=== PATIENT | female | born 2000 | race African-American/Black ===

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

== ENCOUNTER 2019-02-22 16:05 | Emergency (ER) | payer SELFPAY ==
[~2019-02-22] VITALS: Ht 160 cm; Wt 95.3 kg
[~2019-02-22 16:05] MED LIST: METR500T PO; SULF1TAB24 PO
[2019-02-22 16:18] VITALS: BP 143/67
--- NOTE | 2019-02-22 16:45 | PHYS DOC ---
Past Medical History Past Medical History: Asthma, Depression, Other Additional Past Medical Histor: ACNE DISORDER Past Surgical History: No Surgical History Alcohol Use: None Drug Use: None Adult General Chief Complaint Chief Complaint: SORE THROAT HPI HPI Patient is a 18 year old Female who presents with cough, stuffy nose and throat pain that started yesterday. Patient rates her pain at 6/10. Review of Systems Review of Systems HENT: nasal congestion or sore throat [] Respiratory: cough or denies shortness of breath [] All other systems were reviewed and found to be within normal limits, except as documented in this note. Allergies Allergies Allergies Coded Allergies Type Severity Reaction Last Updated Verified No Known Drug Allergies 12/20/17 No Physical Exam Physical Exam Constitutional: Well developed, well nourished, no acute distress, non-toxic appearance. [] HENT: Normocephalic, atraumatic, bilateral external ears normal, oropharynx moist, no oral exudates, nose normal. Throat reddened but no exudates or swelling. [] Eyes: PERRLA, EOMI, conjunctiva normal, no discharge. [] Neck: Normal range of motion, no tenderness, supple, no stridor. [] Cardiovascular:Heart rate regular rhythm, no murmur [] Lungs & Thorax: Bilateral breath sounds clear to auscultation [] Abdomen: Bowel sounds normal, soft, no tenderness, no masses, no pulsatile masses. [] Skin: Warm, dry, no erythema, no rash. [] Neurologic: Alert and oriented X 3, normal motor function, normal sensory function, no focal deficits noted. [] Psychologic: Affect normal, judgement normal, mood normal. [] Current Patient Data Vital Signs Vital Signs Date Time Temp Pulse Resp B/P (MAP) Pulse Ox O2 Delivery O2 Flow Rate FiO2 02/22/19 16:18 98.6 87 18 143/67 (92) 96 Room Air 98.6 EKG EKG [] Radiology/Procedures Radiology/Procedures [] Course & Med Decision Making Course & Med Decision Making Alert and oriented. Speaks in full clear sentences. Skin pink warm and dry. Vital signs within normal limits. Lungs are clear to auscultation in all lobes. Throat is reddened but there is no swelling or exudates. Bilateral tympanic is pearly white. Patient denies fever, chest pain, shortness of air, abdominal pain, nausea, vomiting, diarrhea, headache, dizziness. Patient is told to take over the counter cold medications, nasal spray, and Ibuprofen or Tylenol. Patient is told to follow up with primary care provider. Dragon Disclaimer Dragon Disclaimer This electronic medical record was generated, in whole or in part, using a voice recognition dictation system. Departure Departure Impression: Primary Impression: Sore throat Additional Impressions: Cough Encounter for medical screening examination Disposition: HOME, SELF-CARE Condition: STABLE Referrals: UNKNOWN PCP NAME (PCP) Problem Qualifiers KARLA WADDELL APRN Feb 22, 2019 16:45
== END 2019-02-22 16:45 | disposition home or self-care (01) ==
LOC: ER 16:05
DX: J02.9 Acute pharyngitis, unspecified (principal); J45.909 Unspecified asthma, uncomplicated; F32.9 Major depressive disorder, single episode, unspecified
CPT/HCPCS: 99281